=== PATIENT | male | born 1975 | race Caucasian/White ===

== ENCOUNTER 2019-02-14 19:11 | Emergency (ER) | payer BC ==
[2019-02-14] MEDS ORDERED: Diazepam 5 MG TAB ONE (19:48)
[2019-02-14] MEDS ORDERED: Lidocaine 1% (PF) 30 ML VIAL ONE (20:31)
== END 2019-02-14 21:35 | disposition home or self-care (01) ==
LOC: ERS 19:11
DX: S61.211A Laceration without foreign body of left index finger without damage to nail, initial encounter (principal); W45.8XXA Other foreign body or object entering through skin, initial encounter
CPT/HCPCS: 12002; J2001